=== PATIENT | male | born 1935 | race Caucasian/White ===

== ENCOUNTER 2020-06-14 14:37 | Inpatient (IN) ==
[2020-06-14] MEDS: Apixaban 5 MG TABLET PO SCH (21:46)
[2020-06-15 07:18] LABS: Basophils % 0.5 %; Eosinophils # 0.1 K/mcL (0.0-0.6); Eosinophils % 1.8 %; Hematocrit 35.3 % (37.5-50.1); Hemoglobin 11.8 g/dL (12.9-16.9); Immature Granulocytes % 0.3 % (0-4); Lymphocytes # 1.6 K/mcL (0.6-4.6); Lymphocytes % 24.2 %; Mean Corpuscular HGB Conc 33.4 g/dL (31.6-35.5); Mean Corpuscular Hemoglobin 33.4 pg (28.0-33.3); Mean Platelet Volume 10.6 fL (9.4-12.4); Monocytes # 0.8 K/mcL (0.0-1.3); Monocytes % 11.9 %; Platelet Count 328 K/mcL (140-400); Red Blood Count 3.53 M/mcL (4.19-5.50); Red Cell Distribution Width 14.7 % (11.5-14.5); Segmented Neutrophils % 61.3 %; White Blood Count 6.6 K/mcL (4.3-11.1)
[2020-06-15 07:44] LABS: BUN/Creatinine Ratio 20 (6-26); Blood Urea Nitrogen 16 mg/dL (8-23); Calcium 8.1 mg/dL (8.6-10.3); Carbon Dioxide 23 mEq/L (23-29); Chloride 108 mEq/L (98-107); Glucose 93 mg/dL (70-105); Osmolality,Calculated 293 (280-300); Potassium 3.2 mEq/L (3.5-5.1); Sodium 141 mEq/L (136-145); eGFR For African Americans > 60 (> 60); eGFR For Non-African Americans > 60 (> 60)
[2020-06-15] MEDS ORDERED: Furosemide 20 MG TABLET PO SCH (09:00)
[2020-06-15] MEDS: Aspirin 81 MG TAB.CHEW PO SCH (10:09)
[2020-06-15] MEDS: allopurinoL 300 MG TABLET PO SCH (10:10)
[2020-06-15] MEDS: Apixaban 5 MG TABLET PO SCH ×2 (10:10→22:03)
[2020-06-15] MEDS ORDERED: Ipratropium/Albuterol Neb 3 ML IH PRN (16:36)
[2020-06-15] MEDS: Budesonide/Formoterol 160/4.5 1 PUFF INH IH SCH (21:58)
[2020-06-16 06:53] LABS: Alanine Aminotransferase 33 Units/L (7-52); Albumin 2.9 g/dL (3.5-5.7); Alkaline Phosphatase 64 Units/L (34-104); Aspartate Amino Transferase 27 Units/L (13-39); BUN/Creatinine Ratio 20 (6-26); Bilirubin,Total 0.6 mg/dL (0.3-1.0); Blood Urea Nitrogen 17 mg/dL (8-23); Calcium 8.2 mg/dL (8.6-10.3); Carbon Dioxide 23 mEq/L (23-29); Chloride 109 mEq/L (98-107); Globulin 2.9 g/dL (2.4-3.5); Glucose 109 mg/dL (70-105); Osmolality,Calculated 294 (280-300); Potassium 3.8 mEq/L (3.5-5.1); Sodium 141 mEq/L (136-145); Total Protein 5.8 g/dL (6.4-8.9); eGFR For African Americans > 60 (> 60); eGFR For Non-African Americans > 60 (> 60)
[2020-06-16 08:57] LABS: % Iron Saturation 17 % (20-55); Iron 30 mcg/dL (65-175); Transferrin 128 mg/dL (203-362)
[2020-06-16] MEDS ORDERED: Metoprolol XL (24 HR) Succ 50 MG TAB.ER.24H PO SCH (09:00)
[2020-06-16 09:15] LABS: Ferritin 733 ng/mL (20-250)
[2020-06-16] MEDS: Apixaban 5 MG TABLET PO SCH ×2 (09:53→21:25)
[2020-06-16] MEDS: Metoprolol XL (24 HR) Succ 50 MG TAB.ER.24H PO SCH (09:53)
[2020-06-16] MEDS: Aspirin 81 MG TAB.CHEW PO SCH (09:53)
[2020-06-16] MEDS: allopurinoL 300 MG TABLET PO SCH (09:53)
[2020-06-16] MEDS: Budesonide/Formoterol 160/4.5 1 PUFF INH IH SCH ×2 (10:06→22:26)
[2020-06-16 11:37] LABS: Folate 8.9 ng/mL (3.0-16.0)
[2020-06-17 07:19] LABS: Basophils % 0.4 %; Eosinophils # 0.2 K/mcL (0.0-0.6); Eosinophils % 1.9 %; Hematocrit 35.5 % (37.5-50.1); Hemoglobin 11.6 g/dL (12.9-16.9); Immature Granulocytes % 0.3 % (0-4); Lymphocytes # 1.8 K/mcL (0.6-4.6); Lymphocytes % 23.5 %; Mean Corpuscular HGB Conc 32.7 g/dL (31.6-35.5); Mean Corpuscular Hemoglobin 33.3 pg (28.0-33.3); Mean Platelet Volume 10.8 fL (9.4-12.4); Monocytes # 0.7 K/mcL (0.0-1.3); Monocytes % 8.7 %; Neutrophils # 5.1 K/mcL (1.6-8.9); Platelet Count 351 K/mcL (140-400); Red Blood Count 3.48 M/mcL (4.19-5.50); Red Cell Distribution Width 14.8 % (11.5-14.5); Segmented Neutrophils % 65.2 %; White Blood Count 7.8 K/mcL (4.3-11.1)
[2020-06-17 07:31] LABS: Alanine Aminotransferase 39 Units/L (7-52); Albumin 2.9 g/dL (3.5-5.7); Alkaline Phosphatase 63 Units/L (34-104); Aspartate Amino Transferase 33 Units/L (13-39); BUN/Creatinine Ratio 21 (6-26); Bilirubin,Total 0.5 mg/dL (0.3-1.0); Blood Urea Nitrogen 18 mg/dL (8-23); Calcium 8.2 mg/dL (8.6-10.3); Carbon Dioxide 24 mEq/L (23-29); Chloride 109 mEq/L (98-107); Glucose 109 mg/dL (70-105); Osmolality,Calculated 294 (280-300); Potassium 4.3 mEq/L (3.5-5.1); Sodium 141 mEq/L (136-145); Total Protein 5.9 g/dL (6.4-8.9); eGFR For African Americans > 60 (> 60); eGFR For Non-African Americans > 60 (> 60)
[2020-06-17] MEDS: Apixaban 5 MG TABLET PO SCH ×2 (08:39→20:02)
[2020-06-17] MEDS: Metoprolol XL (24 HR) Succ 50 MG TAB.ER.24H PO SCH (08:39)
[2020-06-17] MEDS: Aspirin 81 MG TAB.CHEW PO SCH (08:40)
[2020-06-17] MEDS: allopurinoL 300 MG TABLET PO SCH (08:40)
[2020-06-17] MEDS: Budesonide/Formoterol 160/4.5 1 PUFF INH IH SCH ×2 (10:04→21:16)
[2020-06-18] MEDS: Budesonide/Formoterol 160/4.5 1 PUFF INH IH SCH ×2 (09:05→22:11)
[2020-06-18] MEDS: Aspirin 81 MG TAB.CHEW PO SCH (10:06)
[2020-06-18] MEDS: allopurinoL 300 MG TABLET PO SCH (10:07)
[2020-06-18] MEDS: Apixaban 5 MG TABLET PO SCH ×2 (10:07→19:53)
[2020-06-18] MEDS: Metoprolol XL (24 HR) Succ 50 MG TAB.ER.24H PO SCH (10:07)
[2020-06-19] MEDS: Budesonide/Formoterol 160/4.5 1 PUFF INH IH SCH ×2 (08:54→21:27)
[2020-06-19] MEDS: Apixaban 5 MG TABLET PO SCH ×2 (09:15→20:58)
[2020-06-19] MEDS: Metoprolol XL (24 HR) Succ 50 MG TAB.ER.24H PO SCH (09:15)
[2020-06-19] MEDS: Aspirin 81 MG TAB.CHEW PO SCH (09:15)
[2020-06-19] MEDS: allopurinoL 300 MG TABLET PO SCH (09:15)
[2020-06-20] MEDS: Budesonide/Formoterol 160/4.5 1 PUFF INH IH SCH ×2 (08:51→21:43)
[2020-06-20] MEDS: Aspirin 81 MG TAB.CHEW PO SCH (10:43)
[2020-06-20] MEDS: Apixaban 5 MG TABLET PO SCH ×2 (10:43→21:00)
[2020-06-20] MEDS: allopurinoL 300 MG TABLET PO SCH (10:44)
[2020-06-20] MEDS: Metoprolol XL (24 HR) Succ 50 MG TAB.ER.24H PO SCH (10:44)
[2020-06-21] MEDS: allopurinoL 300 MG TABLET PO SCH (09:19)
[2020-06-21] MEDS: Metoprolol XL (24 HR) Succ 50 MG TAB.ER.24H PO SCH (09:19)
[2020-06-21] MEDS: Apixaban 5 MG TABLET PO SCH ×2 (09:19→19:38)
[2020-06-21] MEDS: Aspirin 81 MG TAB.CHEW PO SCH (09:20)
[2020-06-21] MEDS: Budesonide/Formoterol 160/4.5 1 PUFF INH IH SCH ×2 (09:24→22:12)
[2020-06-22] MEDS: Aspirin 81 MG TAB.CHEW PO SCH (08:48)
[2020-06-22] MEDS: allopurinoL 300 MG TABLET PO SCH (08:48)
[2020-06-22] MEDS: Metoprolol XL (24 HR) Succ 50 MG TAB.ER.24H PO SCH (08:48)
[2020-06-22] MEDS: Apixaban 5 MG TABLET PO SCH ×2 (08:49→19:33)
[2020-06-22] MEDS: Budesonide/Formoterol 160/4.5 1 PUFF INH IH SCH ×2 (10:51→22:12)
[2020-06-23 07:05] LABS: Hematocrit 29.5 % (37.5-50.1); Hemoglobin 9.7 g/dL (12.9-16.9); Mean Corpuscular HGB Conc 32.9 g/dL (31.6-35.5); Mean Corpuscular Volume 100.3 fL (83.0-100.0); Mean Platelet Volume 10.5 fL (9.4-12.4); Platelet Count 282 K/mcL (140-400); Red Blood Count 2.94 M/mcL (4.19-5.50); Red Cell Distribution Width 14.7 % (11.5-14.5); White Blood Count 7.5 K/mcL (4.3-11.1)
[2020-06-23 07:22] LABS: BUN/Creatinine Ratio 24 (6-26); Blood Urea Nitrogen 18 mg/dL (8-23); Calcium 8.3 mg/dL (8.6-10.3); Carbon Dioxide 27 mEq/L (23-29); Chloride 100 mEq/L (98-107); Glucose 99 mg/dL (70-105); Osmolality,Calculated 278 (280-300); Potassium 4.2 mEq/L (3.5-5.1); Sodium 133 mEq/L (136-145); eGFR For African Americans > 60 (> 60); eGFR For Non-African Americans > 60 (> 60)
[2020-06-23] MEDS: Aspirin 81 MG TAB.CHEW PO SCH (08:55)
[2020-06-23] MEDS: Metoprolol XL (24 HR) Succ 50 MG TAB.ER.24H PO SCH (08:56)
[2020-06-23] MEDS: Apixaban 5 MG TABLET PO SCH ×2 (08:56→19:43)
[2020-06-23] MEDS: allopurinoL 300 MG TABLET PO SCH (08:56)
[2020-06-23] MEDS: Budesonide/Formoterol 160/4.5 1 PUFF INH IH SCH ×2 (10:01→21:45)
[2020-06-23] MEDS ORDERED: GI Cocktail 40 ML EACH PO ONE (23:20)
[2020-06-24] MEDS: Metoprolol XL (24 HR) Succ 50 MG TAB.ER.24H PO SCH (07:31)
[2020-06-24] MEDS: allopurinoL 300 MG TABLET PO SCH (07:31)
[2020-06-24] MEDS: Aspirin 81 MG TAB.CHEW PO SCH (07:31)
[2020-06-24] MEDS: Apixaban 5 MG TABLET PO SCH ×2 (07:31→20:55)
[2020-06-24] MEDS: Budesonide/Formoterol 160/4.5 1 PUFF INH IH SCH ×2 (07:59→22:00)
[2020-06-24] MEDS ORDERED: *HR* LORazepam 0.5 MG TABLET PO ONE (08:57)
[2020-06-24] MEDS: Ondansetron ODT 4 MG TAB.RAPDIS SL PRN (09:31)
[2020-06-25] MEDS: allopurinoL 300 MG TABLET PO SCH (09:00)
[2020-06-25] MEDS: Metoprolol XL (24 HR) Succ 50 MG TAB.ER.24H PO SCH (09:00)
[2020-06-25] MEDS: Apixaban 5 MG TABLET PO SCH ×2 (09:00→19:54)
[2020-06-25] MEDS: Aspirin 81 MG TAB.CHEW PO SCH (09:01)
[2020-06-25] MEDS: Budesonide/Formoterol 160/4.5 1 PUFF INH IH SCH ×2 (09:12→21:29)
[2020-06-25] MEDS: Ondansetron ODT 4 MG TAB.RAPDIS SL PRN ×2 (12:56→20:51)
[2020-06-26] MEDS: Aspirin 81 MG TAB.CHEW PO SCH (08:16)
[2020-06-26] MEDS: Metoprolol XL (24 HR) Succ 50 MG TAB.ER.24H PO SCH (08:16)
[2020-06-26] MEDS: Apixaban 5 MG TABLET PO SCH ×2 (08:17→21:06)
[2020-06-26] MEDS: allopurinoL 300 MG TABLET PO SCH (08:18)
[2020-06-26] MEDS: Budesonide/Formoterol 160/4.5 1 PUFF INH IH SCH ×2 (10:35→22:17)
[2020-06-27] MEDS: Aspirin 81 MG TAB.CHEW PO SCH (10:26)
[2020-06-27] MEDS: Apixaban 5 MG TABLET PO SCH ×2 (10:26→20:19)
[2020-06-27] MEDS: Metoprolol XL (24 HR) Succ 50 MG TAB.ER.24H PO SCH (10:26)
[2020-06-27] MEDS: allopurinoL 300 MG TABLET PO SCH (10:27)
[2020-06-27] MEDS: Budesonide/Formoterol 160/4.5 1 PUFF INH IH SCH ×2 (10:33→22:03)
[2020-06-27] MEDS: Ondansetron ODT 4 MG TAB.RAPDIS SL PRN (23:18)
[2020-06-27] MEDS: Acetaminophen 325 MG TABLET PO PRN (23:18)
[2020-06-28] MEDS: Aspirin 81 MG TAB.CHEW PO SCH (08:28)
[2020-06-28] MEDS: allopurinoL 300 MG TABLET PO SCH (08:28)
[2020-06-28] MEDS: Metoprolol XL (24 HR) Succ 50 MG TAB.ER.24H PO SCH (08:28)
[2020-06-28] MEDS: Apixaban 5 MG TABLET PO SCH ×2 (08:28→21:02)
[2020-06-28] MEDS: Simethicone 80 MG TAB.CHEW PO PRN (09:50)
[2020-06-28 10:16] LABS: Hemoglobin 11.1 g/dL (12.9-16.9); Mean Corpuscular HGB Conc 32.6 g/dL (31.6-35.5); Mean Corpuscular Volume 101.2 fL (83.0-100.0); Mean Platelet Volume 9.9 fL (9.4-12.4); Platelet Count 373 K/mcL (140-400); Red Blood Count 3.36 M/mcL (4.19-5.50); Red Cell Distribution Width 14.8 % (11.5-14.5); White Blood Count 11.1 K/mcL (4.3-11.1)
[2020-06-28 11:00] LABS: BUN/Creatinine Ratio 25 (6-26); Blood Urea Nitrogen 22 mg/dL (8-23); Calcium 8.9 mg/dL (8.6-10.3); Carbon Dioxide 25 mEq/L (23-29); Chloride 96 mEq/L (98-107); Glucose 187 mg/dL (70-105); Osmolality,Calculated 282 (280-300); Potassium 3.3 mEq/L (3.5-5.1); Sodium 132 mEq/L (136-145); eGFR For African Americans > 60 (> 60); eGFR For Non-African Americans > 60 (> 60)
[2020-06-28] MEDS: Budesonide/Formoterol 160/4.5 1 PUFF INH IH SCH ×2 (11:02→21:14)
[2020-06-28 20:18] LABS: Adenovirus F 40/41 PCR Not detected (Not detect); Astrovirus PCR Not detected (Not detect); C.difficile Toxin A/B Gene PCR Not detected (Not detect); Campylobacter by PCR Not detected (Not detect); Cryptosporidium by PCR Not detected (Not detect); Cyclospora cayetanensis PCR Not detected (Not detect); E. coli O157 by PCR Not detected (Not detect); Entamoeba histolytica PCR Not detected (Not detect); Enteroaggregative E.coli(EAEC) Not detected (Not detect); Enteropathogenic E.coli(EPEC) Not detected (Not detect); Enterotoxigenic E.coli (ETEC) Not detected (Not detect); Giardia lamblia PCR Not detected (Not detect); Norovirus GI/GII PCR Not detected (Not detect); Plesiomonas shigelloides PCR Not detected (Not detect); Rotavirus A PCR Not detected (Not detect); Salmonella PCR Not detected (Not detect); Sapovirus PCR Not detected (Not detect); Shig/EnteroinvasiveE coli EIEC Not detected (Not detect); Shigalike tox-prod E coli STEC Not detected (Not detect); Vibrio PCR Not detected (Not detect); Vibrio cholerae PCR Not detected (Not detect); Yersinia enterocolitica PCR Not detected (Not detect)
[2020-06-29] MEDS: Budesonide/Formoterol 160/4.5 1 PUFF INH IH SCH ×3 (08:38→20:55)
[2020-06-29] MEDS: Apixaban 5 MG TABLET PO SCH ×2 (10:02→21:09)
[2020-06-29] MEDS: allopurinoL 300 MG TABLET PO SCH (10:02)
[2020-06-29] MEDS: Aspirin 81 MG TAB.CHEW PO SCH (10:03)
[2020-06-29] MEDS: Metoprolol XL (24 HR) Succ 50 MG TAB.ER.24H PO SCH (10:03)
[2020-06-30 08:06] LABS: Basophils % 0.4 %; Eosinophils # 0.1 K/mcL (0.0-0.6); Eosinophils % 1.3 %; Hematocrit 29.6 % (37.5-50.1); Hemoglobin 9.7 g/dL (12.9-16.9); Immature Granulocytes % 0.3 % (0-4); Lymphocytes # 1.4 K/mcL (0.6-4.6); Lymphocytes % 19.9 %; Mean Corpuscular HGB Conc 32.8 g/dL (31.6-35.5); Mean Corpuscular Hemoglobin 33.1 pg (28.0-33.3); Mean Platelet Volume 9.7 fL (9.4-12.4); Monocytes # 0.7 K/mcL (0.0-1.3); Monocytes % 10.9 %; Neutrophils # 4.6 K/mcL (1.6-8.9); Platelet Count 268 K/mcL (140-400); Red Blood Count 2.93 M/mcL (4.19-5.50); Red Cell Distribution Width 14.6 % (11.5-14.5); Segmented Neutrophils % 67.2 %; White Blood Count 6.8 K/mcL (4.3-11.1)
[2020-06-30 08:19] LABS: BUN/Creatinine Ratio 21 (6-26); Blood Urea Nitrogen 14 mg/dL (8-23); Calcium 8.2 mg/dL (8.6-10.3); Carbon Dioxide 32 mEq/L (23-29); Chloride 99 mEq/L (98-107); Glucose 92 mg/dL (70-105); Osmolality,Calculated 282 (280-300); Potassium 3.6 mEq/L (3.5-5.1); Sodium 136 mEq/L (136-145); eGFR For African Americans > 60 (> 60); eGFR For Non-African Americans > 60 (> 60)
[2020-06-30] MEDS ORDERED: polyethylene glycoL 3350 17 GM POWD.PACK PO ONE (08:35)
[2020-06-30] MEDS: Budesonide/Formoterol 160/4.5 1 PUFF INH IH SCH ×2 (08:45→21:09)
[2020-06-30] MEDS: Sennosides/Docusate Sodium TABLET PO SCH ×2 (08:59→20:18)
[2020-06-30] MEDS: Apixaban 5 MG TABLET PO SCH ×2 (08:59→20:18)
[2020-06-30] MEDS: Aspirin 81 MG TAB.CHEW PO SCH (08:59)
[2020-06-30] MEDS: allopurinoL 300 MG TABLET PO SCH (08:59)
[2020-06-30] MEDS: Metoprolol XL (24 HR) Succ 25 MG TAB.ER.24H PO SCH (09:00)
[2020-07-01] MEDS: Aspirin 81 MG TAB.CHEW PO SCH (09:13)
[2020-07-01] MEDS: Sennosides/Docusate Sodium TABLET PO SCH ×3 (09:13→20:32)
[2020-07-01] MEDS: allopurinoL 300 MG TABLET PO SCH (09:13)
[2020-07-01] MEDS: Metoprolol XL (24 HR) Succ 25 MG TAB.ER.24H PO SCH (09:14)
[2020-07-01] MEDS: Apixaban 5 MG TABLET PO SCH ×2 (09:14→20:36)
[2020-07-01] MEDS: Budesonide/Formoterol 160/4.5 1 PUFF INH IH SCH ×2 (11:13→20:56)
[2020-07-02] MEDS: Apixaban 5 MG TABLET PO SCH ×2 (08:47→20:33)
[2020-07-02] MEDS: Sennosides/Docusate Sodium TABLET PO SCH ×2 (08:48→20:33)
[2020-07-02] MEDS: allopurinoL 300 MG TABLET PO SCH (08:48)
[2020-07-02] MEDS: Aspirin 81 MG TAB.CHEW PO SCH (08:48)
[2020-07-02] MEDS: Metoprolol XL (24 HR) Succ 25 MG TAB.ER.24H PO SCH (08:48)
[2020-07-02] MEDS: Budesonide/Formoterol 160/4.5 1 PUFF INH IH SCH ×2 (10:21→20:55)
[2020-07-02] MEDS: Acetaminophen 325 MG TABLET PO PRN (12:24)
[2020-07-03] MEDS: Aspirin 81 MG TAB.CHEW PO SCH (08:58)
[2020-07-03] MEDS: Sennosides/Docusate Sodium TABLET PO SCH ×2 (08:58→20:02)
[2020-07-03] MEDS: Acetaminophen 325 MG TABLET PO PRN (08:58)
[2020-07-03] MEDS: allopurinoL 300 MG TABLET PO SCH (08:59)
[2020-07-03] MEDS: Apixaban 5 MG TABLET PO SCH ×2 (08:59→20:02)
[2020-07-03] MEDS: Metoprolol XL (24 HR) Succ 25 MG TAB.ER.24H PO SCH (08:59)
[2020-07-03] MEDS: Budesonide/Formoterol 160/4.5 1 PUFF INH IH SCH ×2 (09:06→21:12)
[2020-07-04] MEDS: Budesonide/Formoterol 160/4.5 1 PUFF INH IH SCH ×2 (08:53→21:34)
[2020-07-04] MEDS: Aspirin 81 MG TAB.CHEW PO SCH (08:56)
[2020-07-04] MEDS: Apixaban 5 MG TABLET PO SCH ×2 (08:56→21:03)
[2020-07-04] MEDS: allopurinoL 300 MG TABLET PO SCH (08:56)
[2020-07-04] MEDS: Metoprolol XL (24 HR) Succ 25 MG TAB.ER.24H PO SCH (08:57)
[2020-07-04] MEDS: Sennosides/Docusate Sodium TABLET PO SCH ×2 (08:57→21:03)
[2020-07-04] MEDS: Simethicone 80 MG TAB.CHEW PO PRN (21:03)
[2020-07-05] MEDS: Budesonide/Formoterol 160/4.5 1 PUFF INH IH SCH ×2 (09:01→20:59)
[2020-07-05] MEDS: Apixaban 5 MG TABLET PO SCH ×2 (09:20→20:23)
[2020-07-05] MEDS: Aspirin 81 MG TAB.CHEW PO SCH (09:20)
[2020-07-05] MEDS: Sennosides/Docusate Sodium TABLET PO SCH ×2 (09:20→20:10)
[2020-07-05] MEDS: Metoprolol XL (24 HR) Succ 25 MG TAB.ER.24H PO SCH (09:21)
[2020-07-05] MEDS: allopurinoL 300 MG TABLET PO SCH (09:22)
[2020-07-06] MEDS: allopurinoL 300 MG TABLET PO SCH (08:44)
[2020-07-06] MEDS: Apixaban 5 MG TABLET PO SCH ×2 (08:44→20:44)
[2020-07-06] MEDS: Metoprolol XL (24 HR) Succ 25 MG TAB.ER.24H PO SCH (08:44)
[2020-07-06] MEDS: Aspirin 81 MG TAB.CHEW PO SCH (08:44)
[2020-07-06] MEDS: Sennosides/Docusate Sodium TABLET PO SCH (08:45)
[2020-07-06] MEDS: Budesonide/Formoterol 160/4.5 1 PUFF INH IH SCH ×2 (09:45→22:23)
[2020-07-06] MEDS ORDERED: Sennosides/Docusate Sodium TABLET PO PRN (17:23)
[2020-07-07] MEDS: Aspirin 81 MG TAB.CHEW PO SCH (09:01)
[2020-07-07] MEDS: allopurinoL 300 MG TABLET PO SCH (09:01)
[2020-07-07] MEDS: Metoprolol XL (24 HR) Succ 25 MG TAB.ER.24H PO SCH (09:01)
[2020-07-07] MEDS: Apixaban 5 MG TABLET PO SCH ×2 (09:02→20:59)
[2020-07-07] MEDS: Budesonide/Formoterol 160/4.5 1 PUFF INH IH SCH ×2 (10:47→21:52)
[2020-07-08] MEDS: Aspirin 81 MG TAB.CHEW PO SCH (08:10)
[2020-07-08] MEDS: Apixaban 5 MG TABLET PO SCH ×2 (08:11→20:46)
[2020-07-08] MEDS: Metoprolol XL (24 HR) Succ 25 MG TAB.ER.24H PO SCH (08:11)
[2020-07-08] MEDS: allopurinoL 300 MG TABLET PO SCH (08:11)
[2020-07-08] MEDS: Budesonide/Formoterol 160/4.5 1 PUFF INH IH SCH ×2 (08:54→21:02)
[2020-07-09] MEDS: Budesonide/Formoterol 160/4.5 1 PUFF INH IH SCH ×2 (08:59→20:42)
[2020-07-09] MEDS: Aspirin 81 MG TAB.CHEW PO SCH (09:50)
[2020-07-09] MEDS: Apixaban 5 MG TABLET PO SCH ×2 (09:50→20:32)
[2020-07-09] MEDS: allopurinoL 300 MG TABLET PO SCH (09:50)
[2020-07-09] MEDS: Metoprolol XL (24 HR) Succ 25 MG TAB.ER.24H PO SCH (09:50)
[2020-07-10 07:00] VITALS: BP 138/78
[2020-07-10] MEDS: Metoprolol XL (24 HR) Succ 25 MG TAB.ER.24H PO SCH (09:54)
[2020-07-10] MEDS: Apixaban 5 MG TABLET PO SCH (09:54)
[2020-07-10] MEDS: Aspirin 81 MG TAB.CHEW PO SCH (09:54)
[2020-07-10] MEDS: allopurinoL 300 MG TABLET PO SCH (09:55)
[2020-07-10] MEDS: Budesonide/Formoterol 160/4.5 1 PUFF INH IH SCH (10:09)
== END 2020-07-10 12:45 | disposition home health service (06) | DRG 945 ==
LOC: INPPIK 20:17
PROVIDERS: ADMIT Family Medicine; ATTEND Family Medicine